=== PATIENT | female | born 1945 | race Caucasian/White ===

== ENCOUNTER 2019-03-20 07:46 | Observation (INO) | payer MEDICARE ==
[2019-03-20] VITALS (15 sets, daily range): BP systolic 107–138; BP diastolic 49–69
[~2019-03-20] VITALS: Ht 160 cm; Wt 69.9 kg
--- NOTE | ~2019-03-20 | H ---
[address] [address] HISTORY AND PHYSICAL Name: QIANA VELARDE Room: [address] Tanika Carroll#: [id number] Admission: 03/20/19 Attend Phys: David Faustin MD, Discharge: 03/21/19 Date of : 49 Report #: [id number] THIS REPORT FOR: //name// Please refer to the History and Physical performed in the physician's office. By: 07Medical Records Staff HUEY /AJ
[2019-03-20 08:29] LABS: HEMATOCRIT 41.1 % (37.0-47.0); MCH 31.8 pg (26.0-34.0); MCV 93.6 fL (80.0-100.0); MPV 9.2 fl. (7.2-11.1); RBC 4.39 mil/uL (4.20-5.00); RDW-CV 13.3 % (10.5-14.5); WBC 8.8 thou/uL (4.0-11.0)
[2019-03-20] MEDS ORDERED: LOSARTAN POTASS50 MG PO (08:35)
[2019-03-20 08:38] LABS: ANION GAP 11 mmol/L (7-16); APTT 20.2 Seconds (25.0-31.3); BUN 41 mg/dL (7-18); CALCIUM 9.4 mg/dL (8.5-10.1); CHLORIDE 102 mmol/L (98-107); CO2 27 mmol/L (21-32); CREATININE 1.8 mg/dL (0.6-1.3); GLUCOSE 370 mg/dL (70-99); POTASSIUM 4.1 mmol/L (3.5-5.1); PROTIME 10.4 Seconds (9.20-11.50); SODIUM 140 mmol/L (136-145)
[2019-03-20] MEDS ORDERED: TOPROL XL100 MG PO (08:38)
[2019-03-20] MEDS ORDERED: NOVOLIN N100 UNIT/3 SUBQ ×2 (08:41→08:42)
[2019-03-20] MEDS ORDERED: HYDROCHLOROTHIA25 M2 PO (08:42)
[2019-03-20 08:43] LABS: ALBUMIN 3.5 g/dL (3.4-5.0); ALKALINE PHOSPHATASE 46 U/L (46-116); CHOLESTEROL 161 mg/dL (<200); HDL CHOLESTEROL 38 mg/dL (>40); LDL CHOLESTEROL 84 mg/dL (<100); SGOT 30 U/L (15-37); SGPT 39 U/L (30-65); TC:HDL 4.2 Ratio (Not establshd); TOTAL BILIRUBIN 0.4 mg/dL (<0.1-1.0); TOTAL PROTEIN 7.5 g/dL (6.4-8.2); TRIGLYCERIDE 196 mg/dL (<150); VLDL 39 mg/dL (<40)
[2019-03-20] MEDS ORDERED: METFORMIN HCL500 MG PO (08:43)
[2019-03-20] MEDS ORDERED: ALLOPURINOL 10100 M1 PO (08:44)
[2019-03-20 08:47] LABS: SERUM ASSESSMENT Clear
--- NOTE | 2019-03-20 13:24 | NUR ---
PT ADMITTED TO TELEMETRY ROOM 212 FROM RADIATION PROTECTION TECHNICIAN. PT DENIES PAIN, SOA, N/V/D. VSS. TRACING NSR ON MONITOR. DRESSING TO RIGHT GROIN C/D/I. HOURLY ROUNDING AN D FALL PRECAUTIONS IN PLACE. CLWR.
--- NOTE | 2019-03-20 13:53 | CARD ---
[address] [address] CARDIAC CATH REPORT Name: QIANA VELARDE Room: [address] M.RCalli#: [id number] Admission: 03/20/19 Attend Phys: David Faustin MD, Discharge: Date of : 49 Report #: [id number] THIS REPORT FOR: //name// ADDENDUM APPROVED REPORT Study performed: 03/20/2019 08:55:30 Patient Details Patient Status: Out-Patient Room #: The patient is a 73 year-old female Event Personnel David Faustin Clubhouse Attendant, Ju Nascimento RN Infection Prevention Practitioner, Kami Keyes RTR Scrub, Mavis Ramirez RTR Monitor, Ozzie Hernandez ELEVATOR ERECTOR Monitor Procedures Performed Art Access - R femoral artery Left Heart Cath w/or w/o Coronaries LHC SAURABH Place w/wo Plasty Single RCA SAURABH Place w/wo Plasty Addl BR PDA DESADDL Atherectomy w/wo Plasty Sgl RCA Hemostasis w/ Angioseal Indication Unstable angina Risk Factors Hypercholesterolemia, Hypertension Previous Procedures/Diagnoses Previous PCI Admission/Lab Medications/Medications given during procedure Angiomax bolus and infusion Procedure Narrative The patient was brought electively to the Cardiac Catheterization Laboratory and was prepped and draped in a sterile manner. The right femoral was infiltrated with 2% Lidocaine subcutaneous anesthesia. A Georgiana 6 FR sheath was inserted into the right femoral artery. Coronary angiography was performed using coronary diagnostic catheters. The right coronary system was accessed and visualized with a JR 4 6F catheter. The left coronary system was accessed and visualized with a JL 4 6F catheter. The left ventricle was accessed and visualized with a PIG 6F catheter. Left ventricular/Aortic Valve gradient assessed via catheter pullback[place] [address] CARDIAC CATH REPORT Name: QIANA VELARDE Room: [address] M.R.#: [id number] Admission: 03/20/19 Attend Phys: David Faustin MD, Discharge: Date of : 47 Report #: [id number] angiogram was performed . Closure device was deployed with a Fr Angioseal STS 6Fr. The patient tolerated the procedure well and there were no complications associated with the procedure. A hematoma occurred. There was no hematoma. Intraoperative Conscious Sedation Sedation start time: 09 Case end Time: 110 Fentanyl 25 mcg Versed 1 mg Dose: 2147 mGy Contrast Type and Amount: Visipaque 300 ml Diagnostic Cath Left Main 0% narrowing LAD 40% proximal LAD narrowing with heavily calcified sequential 80 and 75% mid LAD stenosis Circumflex 50% mid vessel narrowing with 30% first marginal narrowing Right Coronary Large dominant vessel with diffuse calcifications; there was 70% calcified proximal 80% calcified mid and 90% posterior descending branch stenosis noted Left Ventriculography Left Ventriculography was not performed. Hemodynamics The aortic pressure is 115/52 mmHg with a mean of 74 mmHg. The left ventricular pressure is 108/5 mmHg with a mean of mmHg. The left ventricular end diastolic pressure is 10 mmHg. There was no gradient across the aortic valve upon pullback. PCI Technique Lesion Anticoagulation was achieved with Angiomax. Patient was preloaded with Angiomax. Percutaneous coronary intervention was performed on the right posterior descending artery. The lesion stenosis prior to intervention was 90% with CADEN 3 flow. A Launcher JR 4 6FR Guide Catheter was used to engage the right ostium. A IG: ProwaterFlex 180CM Interventional Guidewire was used to cross the lesion. BALLOON DILATION A Balloon catheter NC Trek RX 2.0 X 8 was inserted and inflated up to 15.00atm for 20seconds. Additional Inflation: 17.00atm for 11seconds[place] [address] CARDIAC CATH REPORT Name: QIANA VELARDE [address] [id number] Admission: 03/20/19 Attend Phys: David Faustin MD, Discharge: Date of : 49 Report #: [id number] A drug-eluting stent Ozzy RX Stent 2.0X8mm was inserted and inflated up to 12.00atm for 14seconds. Additional Inflation: 14.00atm for 11seconds. Additional Inflation: 15.00atm for 12seconds. Final angiography reveals 0 % stenosis with CADEN 3 flow. COMMENTS The procedure was complex by virtue of the marked diffuse calcification of the vessel requiring significant lesion Preparation prior to stenting of the proximal mid and posterior descending sites PCI Technique Lesion 2 Percutaneous Coronary Intervention was performed on the mid right coronary artery. Patient was preloaded with Angiomax. The lesion stenosis prior to intervention was 80% with CADEN 3 flow. A Launcher JR 4 6FR Guide Catheter was used to engage the right ostium. A IG: BMW 190cm Interventional Guidewire was used to cross the lesion. Balloon Dilation A Balloon catheter NC Trek RX 2.75 X 12 was inserted and inflated up to 20.00atm for 11seconds. Additional Inflation: 22.00atm for 16seconds. Stent Deployment A drug-eluting stent Biotronik Orsiro 2.75 x 15 was inserted and inflated up to 12.00atm for 19seconds. Additional Inflation: 14.00atm for 12seconds. Final angiography reveals 0 % stenosis with CADEN 3 flow. PCI Technique Lesion 3 Percutaneous Coronary Intervention was performed on the proximal right coronary artery. Patient was preloaded with Angiomax. The lesion stenosis prior to intervention was 70% with CADEN 3 flow. A Launcher JR 4 6FR Guide Catheter was used to engage the right ostium. A IG: BMW 190cm Interventional Guidewire was used to cross the lesion. Balloon Dilation A Balloon catheter NC Trek RX 2.75 X 12 was inserted and inflated up to 16.00atm for 9seconds. Additional Inflation: 20.00atm for 15seconds. Additional Inflation: 17.00atm for 10seconds. Angiosculpt [address] [address] CARDIAC CATH REPORT Name: QIANA VELARDE Room: M.212-P ADM Tanika Carroll#: [id number] Admission: 03/20/19 Attend Phys: David Faustin MD, Discharge: Date of : 49 Report #: [id number] PTCA 3.0 x 10 inflated for 28 sec @ 12 marilin, 25 sec @ 14 marilin, and 24 sec @ 14 marilin Stent Deployment A drug-eluting stent Biotronik Orsiro 2.75 x 18 was inserted and inflated up to 14.00atm for 21seconds. Additional Inflation: 16.00atm for 12seconds. Post Stent Deployment Balloon Dilation A Balloon catheter NC Trek RX 3.0 X 8 was inserted and inflated up to 18.00atm for 9seconds. Additional Inflation: 22.00atm for 19seconds. Final angiography reveals 10 % stenosis with CADEN 3 flow. Conclusion #1 significant coronary artery disease characterized by the following: A 40% proximal with tandem, calcified 80 and 75% mid LAD stenosis B nondominant circumflex with 50% mid vessel narrowing and 30% first marginal narrowing C large dominant right coronary with diffuse calcification with 70% heavily calcified proximal 80% heavily calcified mid and 90% posterior descending stenoses #2 normal left-sided hemodynamics study #3 successful angioplasty with stenting of the posterior descending branch of right coronary artery with 0% residual narrowing #4 successful angioplasty with stenting of the mid right coronary artery with 0% residual narrowing and CADEN-3 flow to the distal vessel #5 successful atherotomy/atherectomy stenting and post dilatation of the proximal right artery with 10% residual narrowing and CADEN-3 flow the distal vessel Recommendations Cardiac Risk Reduction Program Aggressive Medical Therapy [address] [address] CARDIAC CATH REPORT Name: QIANA VELARDE Room: [address] Carly#: [id number] Admission: 03/20/19 Attend Phys: David Faustin MD, Discharge: Date of : 49 Report #: [id number] Medications Administered Aspirin (any) Ticagrelor Diagnostic Cath Approved by: David Faustin MD Date/Time: 03/20/2019 13:49:04 <ELECTRONICALLY SIGNED> By: David Faustin MD, FACC 03/20/19 1353 1353 1353David Faustin MD, FACC /INF
--- NOTE | 2019-03-20 14:08 | EKG ---
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
--- NOTE | 2019-03-20 14:08 | EKG ---
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
[2019-03-21] VITALS: BP 119/54
[2019-03-21 04:00] VITALS: BP 101/47
--- NOTE | 2019-03-21 04:29 | NUR ---
ASSUMED PATIENT CARE AT 1900. ASSESSMENT COMPLETED CHARTED. VSS. NSR ON MONITOR. HOURLY ROUNDING IN PLACE FOR PATIENT SAFETY. CLWR.
[2019-03-21 04:31] LABS: HEMATOCRIT 34.3 % (37.0-47.0); MCH 31.6 pg (26.0-34.0); MCHC 33.9 g/dL (28.0-37.0); MCV 93.2 fL (80.0-100.0); RBC 3.68 mil/uL (4.20-5.00); RDW-CV 13.3 % (10.5-14.5); WBC 11.7 thou/uL (4.0-11.0)
[2019-03-21 04:35] LABS: HEMOGLOBIN 11.6 gm/dL (12.0-15.0)
[2019-03-21 04:50] LABS: ALBUMIN 2.9 g/dL (3.4-5.0); CREATININE 1.4 mg/dL (0.6-1.3); POTASSIUM 3.8 mmol/L (3.5-5.1); TOTAL BILIRUBIN 0.3 mg/dL (<0.1-1.0); TOTAL PROTEIN 6.3 g/dL (6.4-8.2)
[2019-03-21 04:52] LABS: TROPONIN-I LEVEL 0.61 ng/mL (<0.06)
[2019-03-21 08:00] VITALS: BP 109/42
[2019-03-21 10:30] VITALS: BP 117/58
[2019-03-21 10:50] VITALS: BP 117/58
--- NOTE | 2019-03-21 10:54 | NUR ---
Spoke with the Tea Gerber PROPRIETARY TRADER about the patient not being discharged on a statin. Tea stated that the patient takes crestor at home and should continue with that medication at home, explained this to the patient and her daughter, staff nurse added crestor to her medication list. Daughter stated that she understood information given.
[2019-03-21] MEDS ORDERED: ADULT ASPIRIN R81 MG PO (10:57)
[2019-03-21] MEDS ORDERED: BRILINTA90 MG PO (10:59)
[2019-03-21] MEDS ORDERED: NITROGLYCERIN0.4 MG SUBLING (11:01)
[2019-03-21] MEDS ORDERED: CRESTOR10 MG PO (11:07)
--- NOTE | 2019-03-21 12:31 | NUR ---
ASSUMED PT CARE AT 0730. ASSESSMENT COMPLETED CHARTED. ABLE TO MAKE NEEDS KNOWN. UP WITH SBA, FAMILY AT BEDSIDE. NO C/O PAIN OR DISCOMFORT. DISCHARGE APPROVED AND GAVE DISCHARGE PAPERWORK, SCRIPTS, INFO ON MEDS, AND OBSERVATION PAPERWORK. PT LEFT IN WHEELCHAIR WITH COMPLEMENTARY HEALTH THERAPISTS DOWN TO FAMILIES CAR. NO QUESTIONS COMMENTS OR CONCERNS NOTED.
--- NOTE | 2019-03-21 13:26 | EKG ---
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
--- NOTE | 2019-03-23 11:31 | D ---
[address] [address] DISCHARGE SUMMARY Name: QIANA VELARDE Room: [address] Tanika Carroll#: [id number] Admission: 03/20/19 Attend Phys: David Faustin MD, Discharge: 03/21/19 Date of : 49 Report #: [id number] THIS REPORT FOR: //name// CC: David Faustin Physician staff MARJORIE BROWN DATE OF SERVICE: 03/21/2019 FINAL DISCHARGE DIAGNOSES: 1. Unstable angina. 2. Coronary artery disease. 3. Status post percutaneous coronary intervention with drug-eluting stents deployed at 3 sites. 4. Hypertension. 5. Hyperlipidemia. 6. Type 2 diabetes. PROCEDURES: 03/20/2019 -- left heart catheterization, selective coronary arteriography and percutaneous coronary intervention with deployment of drug-eluting stent in the posterior descending branch of the right coronary artery, mid and proximal right coronary artery. INDICATION: The patient is a very pleasant 73-year-old female with a history of coronary artery disease, status post prior stenting. While recently in [place], she had 5 successive days of significant chest pressure, typical of her prior angina. There was some improvement after she received rivaroxaban in addition to her chronic therapy while in [place]. She continued to have some discomfort, but not as severe as that experienced while in [place]. There is underlying hypertension, hyperlipidemia and diabetes. In this context, I performed cardiac catheterization on 03/20/2019 which revealed 70% heavily calcified proximal, 80% heavily calcified mid and 90% posterior descending branch stenosis in the dominant right coronary artery. There was 70-80% tubular proximal -- mid with 80% mid to distal LAD stenosis noted. She had 50% mid circumflex narrowing. In this context, I performed percutaneous coronary intervention of the right coronary artery, deploying one drug-eluting stent in the posterior descending, one drug-eluting stent in mid right coronary artery and one drug-eluting stent in the proximal right coronary artery after atherectomy at that site. There was a good angiographic result with 10, 0 and 0% residual narrowings of the proximal, mid and posterior descending sites. She did well post-procedurally with good hemostasis [place] [address] DISCHARGE SUMMARY Name: QIAAN VELARDE [address] [id number] Admission: 03/20/19 Attend Phys: David Faustin MD, Discharge: 03/21/19 Date of : 49 Report #: [id number] catheterization. LABORATORY DATA: On 03/21/2019; revealed sodium 142, potassium 3.8, BUN 29 down from 41, creatinine 1.4 down from 1.8, glucose 135. Hemoglobin 11.6, white blood cell count 11,700 with 210,000 platelets. She ambulated in the hallways without difficulty. The patient was discharged to home on 03/21/2019 on the following medications: Allopurinol 100 mg daily, aspirin 81 mg daily, hydrochlorothiazide 25 mg daily, Novolin insulin 20 units subcutaneously daily at 0700, NPH insulin 10 units subcutaneously at 1800, losartan 50 mg daily, metformin 850 mg at bedtime to be resumed on 03/22/2019, metoprolol succinate 100 mg daily and ticagrelor 90 mg b.i.d. with 180 mg loading dose. The patient is to return to see me on 03/25 at 11:40 to review her clinical status after percutaneous coronary intervention of the right coronary artery with consideration of atherectomy with stenting of the proximal and mid LAD. Therefore, the patient is discharged to home on the aforementioned medications with followup as iterated above. <ELECTRONICALLY SIGNED> By: David Faustin MD, FACC 03/23/19 1131 181 1840David Faustin MD, FACC /nt
== END 2019-03-21 12:25 | disposition home or self-care (01) ==
LOC: M.CL 07:46 → M.TBA-CV 11:47 → M.2W 12:27
PROVIDERS: Internal Medicine Cardiovascular Disease; ADMIT Internal Medicine
DX: I25.110 Atherosclerotic heart disease of native coronary artery with unstable angina pectoris (principal); I10 Essential (primary) hypertension; E11.9 Type 2 diabetes mellitus without complications; E78.5 Hyperlipidemia, unspecified; Z23 Encounter for immunization